=== PATIENT | male | born 1975 | race Caucasian/White ===

== ENCOUNTER 2023-11-13 08:38 | Emergency (ER) | payer BC, SELFPAY ==
[2023-11-13 08:38] VITALS: BP 165/96; PULSE 89; RESP 18; TEMP 36.9; O2SAT 98; BMI 27.2
--- NOTE | 2023-11-13 09:09 | EDS_ITS ---
HPI History of Present Illness Chief Complaint: General Illness Informant: patient Onset/Context/Timing Onset: Days Context: Gradual Onset Timing: Continuous Current Severity: Mild Maximum Severity: Mild Narrative Narrative: 48-year-old male no seen past medical history. No prior abdominal surgeries. Says since Tuesday he has had intermittent chills with intermittent nausea, vomiting and diarrhea. Denies any dysuria. Today had some abdominal cramping and again had some nausea and dry heaves. Currently denies any abdominal pain. He went to the urgent care Tuesday they told him they thought it was a viral syndrome. He was just concerned because he is not better yet. Prior similar symptoms: Yes Recent Illness/Hospitalization: No PFSH PFSH Medical History no medical history no medical history Home Medications ?Medication ?Instructions ?Recorded ?Last Taken ?Type benzonatate 100 mg capsule 100 mg PO Q8H PRN cough #30 caps 07/21/23 Unknown Rx ibuprofen 200 mg capsule 200 mg PO Q6H PRN 07/21/23 Unknown History ondansetron HCl 8 mg tablet 8 mg PO Q8H PRN nausea and 11/10/23 Unknown Rx vomiting #14 tabs ondansetron 4 mg disintegrating 4 mg PO Q6H PRN nausea and 11/13/23 Unknown Rx tablet vomiting #7 tabs Allergy/AdvReac Type Severity Reaction Status Date / Time acetaminophen (From Allergy Mild Other Verified 11/13/23 08:38 Tylenol-Codeine #3) codeine (From Allergy Mild Other Verified 11/13/23 08:38 Tylenol-Codeine #3) Surgical History No history of previous surgery no surgical history Social History Smoking Status: Never smoker ROS ROS ED ROS Narrative Nausea, vomiting diarrhea. Chills. Review of Systems ROS Unobtainable: Denies due to encephalopathy Constitutional Constitutional ED: Reports chills; Denies fever(s) Eyes Eyes: Denies blurry vision ENT ENT ED: Denies ear pain Cardiovascular Cardiovascular: Denies chest pain Respiratory/Chest Respiratory/Chest: Denies dyspnea Gastrointestinal Gastrointestinal: Reports abdominal pain, diarrhea, nausea, vomiting and other Details: Abdominal cramping at times. Currently pain-free. ; Denies constipation or melena Genitourinary Genitourinary ED: Denies dysuria or hematuria Musculoskeletal Musculoskeletal: Denies arthralgias, back pain or myalgias Integumentary Denies abscess or Abrasions Neurologic Neurologic: Denies headache(s) Psychiatric Psychiatric: Denies anxiety Endocrine Endocrinology: Denies cold intolerance Hematologic/Lymphatic Hematologic/Lymphatic: Reports none Allergic/Immunologic Allergic/Immunologic ED: Denies mouth swelling, tongue swelling or urticaria EXAM Physical Exam Narrative Exam Narrative: 48-year-old male vital signs are stable. He is afebrile. Patient is not septic or toxic. He is no distress. H EENT exam mild dry mucous membranes. Pupils are reactive light. No facial droop. Neck nontender no lymphadenopathy. Lungs clear to auscultation bilaterally. Heart regular rhythm rate about 90 no murmur. Chest wall and ribs nontender. Abdomen soft, nontender, nondistended, normal bowel sounds without peritoneal signs. There is no localizing tenderness. No right upper nor right lower quadrant tenderness. No hernia or mass. No distention. Soft with normal bowel sounds. He is moving all 4 extre mities. They are nontender without edema. Normal strength and range of motion. Back nontender. Neurologically is awake and alert no focal motor deficits. Very benign exam. Const Vital Signs: 11/13/23 08:38 11/13/23 08:38 11/13/23 11:00 Temperature 98.4 F Temperature Source Oral Pulse Rate 89 64 Respiratory Rate 18 18 Respiratory Effort Normal Respiratory Pattern Normal Blood Pressure 165/96 H 128/76 H Blood Pressure Mean 119 93 Pulse Ox 98 98 Oxygen Delivery Method Room Air Room Air 11/13/23 11:04 Temperature 97.7 F L Temperature Source Pulse Rate 72 Respiratory Rate 16 Respiratory Effort Respiratory Pattern Blood Pressure 138/107 H Blood Pressure Mean 117 Pulse Ox 99 Oxygen Delivery Method Positive well nourished and well developed; Negative for cachectic, contractures or unkempt General Appearance ED: well developed and NAD; Negative for unkempt, cachectic, contractures, cyanotic, diaphoretic or pallor Nutritional Appearance: Negative for cachectic HEENT Reports dry mucous membranes; Denies moist mucous membranes Negative for trauma or tenderness Mouth ED: Yes dry mucous membranes Mouth: dry mucous membranes Eyes PERRL and EOMs intact bilaterally General Eye ED: Negative for pale conjunctiva or scleral icterus Neck no lymphadenopathy, supple and no JVD General: Negative for tenderness Chest Wall inspection of chest normal and palpation of chest normal Chest: Negative for other Resp normal respiratory effort and clear to auscultation bilaterally Effort and Inspection: Negative for retractions Auscultation: Negative for rales, rhonchi, wheezes or diminished lung sounds Cardio regular rate, regular rhythm, S1 normal heart sound, S2 normal heart sound and no murmurs Rate: Negative for bradycardia or tachycardic Rhythm: Negative for abnormal rhythm GI normal to inspection, nondistended, normoactive bowel sounds, non-tender, non- distended and no masses Inspection: Negative for abdominal distention Auscultation: normoactive bowel sounds Palpation: soft; Negative for tender or guarding Back/Spine no CVA tenderness General Back: Negative for CVA tenderness Cervical Spine: Negative for cervical spine tenderness Thoracic Spine / Upper Back: Negative for thoracic spinal tenderness or paraspinal muscle tenderness Lumbar Spine / Lower Back: Negative for lumbar spinal tenderness Extremity normal to inspection General Extremety ED: Negative for edema or tenderness General Extremity: Negative for edema Neuro oriented x3 and CN's II-XII intact bilaterally Sensorium / Orientation: alert; Negative for orientation impaired, lethargic or stuporous Motor Exam: strength 5/5 throughout Psych mental status grossly normal Appearance: Negative for unkempt Attitude: No agitated Mood & Affect: Negative for depressed, anxious or tearful Skin no rashes or lesions noted and no wounds General Skin Exam: Negative for jaundice or pallor Lesions: No lesion noted Rashes: No rashes noted Trauma: Negative for abrasion Wounds: Negative for wounds noted MDM MDM MDM Narrative Medical decision making narrative: 48-year-old male with sounds like a viral gastroenteritis. I do not think he needs any imaging. His abdomen is benign. Patient requested screening labs to be done. To be treated with IV fluids for an dehydration and Zofran for nausea. Repeat exam patient is doing well at 11:20 AM. Abdomen is benign. However he does have a 23,900 white count very mild may be secondary to his nausea, vomiting diarrhea and his viral syndrome. Due to the elevation of the white count and with his intermittent abdominal pain I do feel he warrants a CAT scan of his abdomen at this time. I discussed that with the patient. Multiple repeat exams the last 1 around 12:10 PM patient doing well. Abdomen benign. I went over all his test results with him. His CAT scan was unremarkable he is comfortable being discharged home. Treated as a viral syndrome. He has 2 Zofran left at home I will write him a prescription and get it filled if he needs it. Fluids and rest. Follow-up as needed. History & Record Review Discussion w/independent historian: Patient Additional record(s) reviewed:: Prior inpatient record, Prior outpatient record, Prior ED visit and Prior labs Lab Data Attestation: I reviewed the patient's lab results. Lab results narrative: CBC shows a white count of 23,900. H&H of 15 and 46. Platelets 310. Electrolytes show sodium 137. Gap 12. Normal BUN 15 creatinine 1. Glucose 154. Liver enzymes normal. Labs: Laboratory Results - last 24 hr 11/13/23 09:23 WBC 23.9 H RBC 5.11 Hgb 15.9 Hct 46.2 MCV 90.4 MCH 31.1 MCHC 34.4 RDW Std Deviation 45.8 H RDW Coeff of Ashlie 13.8 Plt Count 310 MPV 10.6 Immature Gran % (Auto) 0.800 Neut % (Auto) 89.7 H Lymph % (Auto) 6.3 L [place] % (Auto) 2.7 Eos % (Auto) 0.0 Baso % (Auto) 0.5 Absolute Neuts (auto) 21.4 H Absolute Lymphs (auto) 1.50 Nucleated RBC % 0 Differential Comment SCANNED RBC Morphology NORM C+C Sodium 137 Potassium 3.5 Chloride 103 Carbon Dioxide 22.0 Anion Gap 12 BUN 15 Creatinine 1.08 Estim Creat Clear Calc 75.26 Est GFR (MDRD) Af Amer 93 Est GFR (MDRD) Non-Af 77 BUN/Creatinine Ratio 13.9 Glucose 154 H Calcium 9.2 Total Bilirubin 0.90 AST 22 ALT 30 Alkaline Phosphatase 71 Total Protein 8.2 Albumin 4.5 Globulin 3.7 Albumin/Globulin Ratio 1.2 Radiography Diagnostic Testing: Clinical Impression(s) from Imaging Studies Abdomen/Pelvis CT 11/13/23 11:19 IMPRESSION: 1. 2. 1. Vague hypodensity in the right kidney could represent focal acute nephritis. Correlation with lab values and follow-up exams is recommended. 3. 2. Diffuse thickening of the sigmoid and descending colon likely due to underdistention. Colitis is less likely. 4. 3. Small renal and liver cysts. 5. 4. Mild right lower lung infiltrate/atelectasis. Electronically Signed: Juan Tyler MD at 12:02 EDT , Discharge Plan Triage Chief Complaint: General Illness ED Provider: Dakota Saldivar Dx/Rx/DC Orders Clinical Impression: Viral gastroenteritis, Nausea, vomiting and diarrhea, Leukocytosis Instructions: ED Gastroenteritis, Viral (Adult) Prescriptions: New ondansetron 4 mg tablet,disintegrating 4 mg PO Q6H PRN (Reason: nausea and vomiting) Qty: 7 0RF No Action ibuprofen 200 mg capsule 200 mg PO Q6H PRN benzonatate 100 mg capsule 100 mg PO Q8H PRN (Reason: cough) Qty: 30 0RF ondansetron HCl 8 mg tablet 8 mg PO Q8H PRN (Reason: nausea and vomiting) Qty: 14 0RF Primary Care Provider: Care Physician,No Primary Referrals: Hung Nance MD [Med Staff - Creative/Art Director] - 1 Week if not improving Care Physician,No Primary [Primary Care Provider] - Activity Restrictions/Additional Instructions: Plenty of fluids and rest. Increase diet slowly as tolerated. Zofran as needed for nausea. The [facility] Follow-up with your doctor if not improving or return if worse. Print Language: Turkmen Disposition Disposition: Home, Self Care
[2023-11-13] MEDS: 0.9% Normal Saline (1000mL) 1,000 ML 999 ML IV (09:20)
[2023-11-13] MEDS: Ondansetron 4 MG/2 ML Vial IV (09:20)
[2023-11-13 09:32] LABS: Absolute Neutrophil Count 21.4 X10^3/uL (2.0-7.7); Basophil# 0.11 X10^3/uL; Basophil% 0.5 % (0-1); Eosinophil# 0.01 X10^3/uL; Hematocrit 46.2 % (40-54); Hemoglobin 15.9 g/dL (13.0-16.5); Lymphocyte % 6.3 % (19-41); Mean Corp Hgb Conc 34.4 g/dL (32-36); Mean Corpuscular Hgb 31.1 pg (27.0-32.0); Mean Corpuscular Volume 90.4 fL (80-94); Mean Platelet Vol. 10.6 fl (6.2-12.0); Monocyte# 0.64 X10^3/uL; Monocyte% 2.7 % (0-10); NRBC Flagged by Analyzer 0 % (0-5); Neutrophil # 21.42 X10^3/uL (2.7-7.7); Neutrophil % 89.7 % (47-70); POSITIVE DIFFERENTIAL YES; Platelet Count 310 K/mm3 (150-450); RBC Distribution Width CV 13.8 % (11.6-14.6); RBC Distribution Width SD 45.8 fl (35.1-43.9); Red Blood Count 5.11 M/mm3 (4.6-6.2); White Blood Count 23.9 K/mm3 (4.4-11.0)
[2023-11-13 09:41] LABS: Differential Indicated SCAN CRITERIA MET
[2023-11-13 09:45] LABS: ALB/GLOB Ratio 1.2 RATIO (0.9-2.4); AST(SGOT) 22 U/L (15-37); Alanine Aminotransfer ALT/SGPT 30 U/L (16-61); Albumin, Serum 4.5 g/dL (3.2-5.0); Alkaline Phosphatase 71 U/L (45-117); Anion Gap 12 (5-15); BUN 15 mg/dL (7-18); BUN/Creat Ratio 13.9 RATIO (10-20); Calcium,Total 9.2 mg/dL (8.5-10.1); Chloride 103 mmol/L (98-107); Creatinine, Serum 1.08 mg/dL (0.70-1.30); EST Glomerular Filtration Rate 77 mL/min (>60); Est Glom Filt Rate - Afr Amer 93 mL/min (>60); Estimated Creatinine Clearance 75.26 ml/min; Globulin 3.7 g/dL (2.2-4.2); Glucose 154 mg/dL (74-106); Potassium 3.5 mmol/L (3.5-5.1); Protein, Total 8.2 g/dL (6.4-8.2); Sodium Level 137 mmol/L (136-145)
[2023-11-13 10:07] LABS: Differential Comment SCANNED; Red Cell Morphology NORM C+C NORMAL (NORM C&C)
[2023-11-13 11:00] VITALS: BP 128/76; PULSE 64; RESP 18; O2SAT 98
[2023-11-13 11:04] VITALS: BP 138/107; PULSE 72; RESP 16; TEMP 36.5; O2SAT 99
--- NOTE | 2023-11-13 11:19 | CT_ITS ---
STUDY: CT ABDOMEN AND PELVIS WITH CONTRAST REASON FOR EXAM: Male, 48 years old. Leukocytosis RADIATION DOSAGE (If Supplied By Facility): CTDIvol = ( 12.61 ) mGy, DLP = ( 631.79 ) mGycm TECHNIQUE: IV 100mL Isovue-370 was administered. Transaxial images were obtained from the dome of the diaphragm to the symphysis pubis. Multiplanar coronal and sagittal images were reformatted. The protocol utilizes one or more of the following dose reduction techniques: automated exposure control, adjustment of mA and/or kV according to patient size,and/or use of iterative reconstruction technique. COMPARISON: No relevant prior comparison study available FINDINGS: The visualized portions of the lung bases demonstrate subtle hazy mild right lower lobe infiltrate/atelectasis. The visualized portions of the heart are within normal limits. Mild hepatic steatosis. Small low-density lesions in the liver, the largest measures about 5 mm likely representing cysts difficult to accurately characterize. Normal gallbladder and extrahepatic biliary system. Normal spleen. Normal pancreas. Subtle focal hypodensity in the upper pole of the right kidney. Small cysts in the left kidney appears to be simple and no further follow-up exam is needed. No evidence of hydronephrosis. Normal visualized stomach. Normal small intestine. Sigmoid diverticulosis. Thickening of the sigmoid and descending colon likely due to underdistention. Colitis is less likely. The appendix is visualized and appears normal. Atherosclerotic excretions of the abdominal aorta and both iliac arteries without evidence of aneurysm. No retroperitoneal adenopathy. Normal urinary bladder. [Prominent prostate. Small bilateral inguinal hernias containing fat. No demonstrated acute osseous changes. CT/Abdomen/Pelvis W IV Cont ONLY IMPRESSION: 1. 2. 1. Vague hypodensity in the right kidney could represent focal acute nephritis. Correlation with lab values and follow-up exams is recommended. 3. 2. Diffuse thickening of the sigmoid and descending colon likely due to underdistention. Colitis is less likely. 4. 3. Small renal and liver cysts. 5. 4. Mild right lower lung infiltrate/atelectasis. Electronically Signed: Juan Tyler MD at 12:02 EDT ,
== END 2023-11-13 12:20 | disposition home or self-care (01) ==
PROVIDERS: Emergency Provider Emergency Medicine; Visit Provider Emergency Medicine
DX: A08.4 Viral intestinal infection, unspecified (principal); D72.829 Elevated white blood cell count, unspecified
CPT/HCPCS: 74177; 80053; 85025; 96361; 96374; 99284; J7030; Q9967; A4216; J2405